=== PATIENT | male | born 1990 | race American Indian/Alaskan Native ===

== ENCOUNTER 2018-02-14 02:56 | Emergency (ER) | payer SELFPAY ==
[2018-02-14 03:18] VITALS: RESP 20
--- NOTE | 2018-02-14 03:33 | C.PDOC ---
History Of Present Illness 27 y/o male with no PMHx presents to the ED for evaluation of right lower toothache developing for the past 3 days. Patient reports pain is gradually worsening, disrupting his ability to sleep tonight. Otherwise he denies any fever, chills, facial swelling, drooling, trismus, dyspnea, or drainage from area. Time Seen by Provider: 02/14/18 03:12 Chief Complaint (Nursing): Dental Pain History Per: Patient History/Exam Limitations: no limitations Onset/Duration Of Symptoms: Days Current Symptoms Are (Timing): Still Present Past Medical History Reviewed: Historical Data, Nursing Documentation, Vital Signs Vital Signs: Last Vital Signs Temp 98.8 F 02/14/18 03:01 Pulse 74 02/14/18 03:01 Resp 20 02/14/18 03:01 BP 134/76 02/14/18 03:01 Pulse Ox 96 02/14/18 03:01 - Medical History PMH: No Chronic Diseases Surgical History: No Surg Hx Family History: States: No Known Family Hx - Social History Hx Tobacco Use: No Hx Alcohol Use: Yes Hx Substance Use: Yes - Immunization History Hx Tetanus Toxoid Vaccination: No Hx Influenza Vaccination: No Hx Pneumococcal Vaccination: No Review Of Systems Except As Marked, All Systems Reviewed And Found Negative. Constitutional: Negative for: Fever, Chills, Other (drooling) ENT: Positive for: Other (right dental pain). Negative for: Ear Pain, Mouth Swelling, Throat Swelling Cardiovascular: Negative for: Chest Pain Respiratory: Negative for: Shortness of Breath Gastrointestinal: Negative for: Nausea, Vomiting, Diarrhea Physical Exam - Physical Exam Appears: Well, Non-toxic, No Acute Distress Skin: Normal Color, Warm, No Rash Head: Normacephalic Eye(s): bilateral: PERRL Ear(s): Bilateral: Normal, Other (no mastoid tenderness) Nose: No Flaring, No Discharge Oral Mucosa: Moist, No Drooling, No Trismus Tongue: Normal Appearing Lips: Normal Appearing Teeth: Other (tenderness over #32) Gingiva: Erythema (#32), Tender (#32), No Bleeding, No Abscess, Other (no facial edema or cellulitis) Throat: No Erythema, No Exudate, No Drooling, Other (uvula midline, no edema.) Neck: Trachea Midline, Supple Lymphatic: No Adenopathy (cervical) Chest: Symmetrical Cardiovascular: Rhythm Regular, No Murmur Respiratory: No Decreased Breath Sounds, No Accessory Muscle Use, No Rales, No Rhonchi, No Stridor, No Wheezing Extremity: Normal ROM Neurological/Psych: Oriented x3, Normal Speech ED Course And Treatment O2 Sat by Pulse Oximetry: 96 (RA) Pulse Ox Interpretation: Normal Progress Note: On re-eval, pt is sleeping comfortably, not in resp. distress. afebrile, hemodynamicaly stable. Non-toxic. Tolerate Po well in ED. PulseOx 96% RA. Neck: SUpple, (-) JVD, (-) meningeal sign. ENT: tenderness over #32 with mild gingival edema and erythema. NO evidence of tooth abscess, no drooling, or trismus, uvula midline, no edema. Lungs: CTA B/L, BS equal B/L. Neuorlogicaly intact. Pt denies allergy to medication including PCN. Pt has clinical findings c/w impacted wisdom tooth #32, mild gingivitis. parent advised and ref. to f/u with Dentist in 2-3 days for re-eval. return if any new changes. Disposition Counseled Patient/Family Regarding: Diagnosis, Need For Followup, Rx Given - Disposition Referrals: [facility] [Provider Group] [facility] [Provider Group] Disposition: HOME/ ROUTINE Disposition Time: 03:30 Condition: STABLE Additional Instructions: Take medication as prescribed Follow up with Dentist in 2-3 days for re-evaluation. return if any new changes. Prescriptions: Penicillin VK [Penicillin VK Tab] 2 tab PO BID #28 tab traMADol [Ultram] 50 mg PO TID #7 tab Instructions: Gingivitis (DC), Impacted Tooth (DC) Forms: [employer] (Algerian) - Clinical Impression Clinical Impression: Gingivitis - PA / CONTACT [employer] / Resident Statement MD/DO has reviewed & agrees with the documentation as recorded. - Scribe Statement The provider has reviewed the documentation as recorded by the Scribe (Chante cosby) All medical record entries made by the Scribe were at my direction and personally dictated by me. I have reviewed the chart and agree that the record accurately reflects my personal performance of the history, physical exam, medical decision making, and the department course for this patient. I have also personally directed, reviewed, and agree with the discharge instructions and disposition.
[2018-02-14 03:53] VITALS: BP 128/72; PULSE 81; TEMP 97.8; O2SAT 98
== END 2018-02-14 03:53 | disposition home or self-care (01) ==
LOC: C.ER 02:56
DX: K05.10 Chronic gingivitis, plaque induced (principal)